=== PATIENT | male | born 1995 | race Caucasian/White ===

== ENCOUNTER 2018-06-11 15:08 | Emergency (ER) | payer MEDICAID, OTHER ==
[2018-06-11 15:14] VITALS: O2SAT 97
[2018-06-11 16:44] LABS: BASO % 0.2 % (0.0-2.0); EOS % 0.2 % (0.0-4.0); HEMOGLOBIN 13.9 g/dL (12.0-18.0); LYMPH # 1.6 K/uL (1.0-4.3); LYMPH % 15.2 % (20.0-40.0); MEAN CELL VOLUME 85.2 fL (80.0-94.0); MEAN PLATELET VOLUME 8.6 fL (7.2-11.7); MONO % 9.2 % (0.0-10.0); NEUT # 7.9 K/uL (1.8-7.0); NEUT % 75.2 % (50.0-75.0); NRBC % 0.1 % (0.0-2.0); RBC 4.81 Mil/uL (4.40-5.90); RED CELL DISTRIBUTION WIDTH 13.4 % (11.5-14.5); WHITE BLOOD COUNT 10.6 K/uL (4.8-10.8)
[2018-06-11 16:48] LABS: SQUAMOUS EPITHIAL < 1 /hpf (0-5); URINE BACTERIA RARE (<OCC); URINE BILIRUBIN NEGATIVE (NEGATIVE); URINE BLOOD NEGATIVE (NEGATIVE); URINE CLARITY Clear (Clear); URINE COLOR Yellow (YELLOW); URINE GLUCOSE (UA) NORMAL (Normal); URINE LEUKOCYTE ESTERASE NEG Leu/uL (Negative); URINE PROTEIN NEGATIVE (NEGATIVE); URINE UROBILINOGEN NORMAL mg/dL (0.2-1.0)
--- NOTE | 2018-06-11 16:56 | RAD ---
Date of service: 06/11/2018 HISTORY: cough COMPARISON: No prior. TECHNIQUE: Chest PA and lateral FINDINGS: LUNGS: No active pulmonary disease. PLEURA: No significant pleural effusion identified. No pneumothorax apparent. CARDIOVASCULAR: No aortic atherosclerotic calcification present. Normal cardiac size. No pulmonary vascular congestion. OSSEOUS STRUCTURES: No significant abnormalities. VISUALIZED UPPER ABDOMEN: Normal. OTHER FINDINGS: None. IMPRESSION: No active disease.
[2018-06-11 17:01] LABS: BARBITURATES, UR NEGATIVE (NEGATIVE); BENZODIAZEPINES, UR NEGATIVE (NEGATIVE); OPIATES, UR NEGATIVE (NEGATIVE); PHENCYCLIDINE, UR NEGATIVE (NEGATIVE)
[2018-06-11 17:02] LABS: ALB/GLOB RATIO 1.8 (1.0-2.1); ALBUMIN 5.1 g/dL (3.5-5.0); ALT/SGPT 7 U/L (21-72); AST/SGOT 26 U/L (17-59); BLOOD UREA NITROGEN 14 mg/dL (9-20); CALCIUM 9.7 mg/dl (8.6-10.4); GFR NON-AFRICAN AMERICAN > 60; LIPASE 96 U/L (23-300)
[2018-06-11 17:37] VITALS: BP 104/64; PULSE 82; RESP 18; TEMP 98.7
--- NOTE | 2018-06-11 18:10 | C.PDOC ---
History Of Present Illness 22 year old male presents to the ED for evaluation, stating he has been feeling anxious, uneasy and nauseous for around 1 month. Patient also reports vague abdominal discomfort. Patient also admits to marijuana use. He denies fever, chills, vomiting, diarrhea, hx of DVT/PE, or any other drug use. Time Seen by Provider: 06/11/18 15:49 Chief Complaint (Nursing): Abdominal Pain History Per: Patient History/Exam Limitations: no limitations Onset/Duration Of Symptoms: Other (one month ) Current Symptoms Are (Timing): Still Present Associated Symptoms: Nausea. denies: Fever, Chills, Vomiting, Diarrhea Additional History Per: Patient Past Medical History Reviewed: Historical Data, Nursing Documentation, Vital Signs Vital Signs: Last Vital Signs Temp 98.7 F 06/11/18 17:36 Pulse 82 06/11/18 17:36 Resp 18 06/11/18 17:36 BP 104/64 06/11/18 17:36 Pulse Ox 97 06/11/18 17:36 - Medical History PMH: No Chronic Diseases Surgical History: No Surg Hx Family History: States: Unknown Family Hx - Social History Hx Alcohol Use: No Hx Substance Use: Yes - Immunization History Hx Tetanus Toxoid Vaccination: No Hx Influenza Vaccination: No Hx Pneumococcal Vaccination: No Review Of Systems Constitutional: Negative for: Fever, Chills Gastrointestinal: Positive for: Nausea, Abdominal Pain. Negative for: Vomiting, Diarrhea Psych: Positive for: Anxiety Physical Exam - Physical Exam Appears: Non-toxic, No Acute Distress, Other (anxious-appearing male ) Skin: Normal Color, Warm, Dry Head: Atraumatic, Normacephalic Eye(s): bilateral: Normal Inspection Oral Mucosa: Moist Neck: Supple Chest: Symmetrical, No Deformity, No Tenderness, Other (tachycardic ) Cardiovascular: Rhythm Regular, No Murmur Respiratory: Normal Breath Sounds, No Rales, No Rhonchi, No Wheezing Gastrointestinal/Abdominal: Soft, Tenderness (epigastric ), No Guarding, No Rebound Extremity: Normal ROM, Capillary Refill (less than 2 seconds ) Neurological/Psych: Oriented x3, Normal Speech, Normal Cognition ED Course And Treatment - Laboratory Results Result Diagrams: 06/11/18 16:38 06/11/18 16:38 Lab Results: Troponin I 0.0130 ng/mL (0.00-0.120) 06/11/18 16:38 Total Bilirubin 0.3 mg/dL (0.2-1.3) 06/11/18 16:38 AST 26 U/L (17-59) 06/11/18 16:38 ALT 7 U/L (21-72) L 06/11/18 16:38 Alkaline Phosphatase 79 U/L (38-126) 06/11/18 16:38 Total Protein 7.9 g/dL (6.3-8.3) 06/11/18 16:38 Albumin 5.1 g/dL (3.5-5.0) H 06/11/18 16:38 Globulin 2.9 gm/dL (2.2-3.9) 06/11/18 16:38 Albumin/Globulin Ratio 1.8 (1.0-2.1) 06/11/18 16:38 Lipase 96 U/L (23-300) 06/11/18 16:38 Urine Color Yellow (YELLOW) 06/11/18 16:38 Urine Clarity Clear (Clear) 06/11/18 16:38 Urine pH 5.0 (5.0-8.0) 06/11/18 16:38 Ur Specific [place] 1.018 (1.003-1.030) 06/11/18 16:38 Urine Protein Negative mg/dL (NEGATIVE) 06/11/18 16:38 Urine Glucose (UA) Normal mg/dL (Normal) 06/11/18 16:38 Urine Ketones Negative mg/dL (NEGATIVE) 06/11/18 16:38 Urine Blood Negative (NEGATIVE) 06/11/18 16:38 Urine Nitrate Negative (NEGATIVE) 06/11/18 16:38 Urine Bilirubin Negative (NEGATIVE) 06/11/18 16:38 Urine Urobilinogen Normal mg/dL (0.2-1.0) 06/11/18 16:38 Ur Leukocyte Esterase Neg Joon/uL (Negative) 06/11/18 16:38 Urine WBC (Auto) 1 /hpf (0-5) 06/11/18 16:38 Urine RBC (Auto) 2 /hpf (0-3) 06/11/18 16:38 Ur Squamous Epith Cells < 1 /hpf (0-5) 06/11/18 16:38 Urine Bacteria Rare (<OCC) 03/15/19 16:38 ECG: Interpreted By Me, Viewed By Me ECG Rhythm: Sinus Rhythm Interpretation Of ECG: Normal Sinus rhythm at rate 78bpm. Normal intervals, normal axis. LVH. No ST/T wave abnormalities. Rate From EC O2 Sat by Pulse Oximetry: 97 (on RA ) Pulse Ox Interpretation: Normal Medical Decision Making Medical Decision Making: Assessment: anxiety Progress: Bloodwork, urinalysis, CXR, EKG ordered and reviewed. Xanax PO and Zofran IVP given. patient states improvement in symptoms, improved with xanax. Disposition - Disposition Referrals: Brenda Torres MD [Staff Provider] - Disposition: HOME/ ROUTINE Disposition Time: 18:08 Condition: IMPROVED Additional Instructions: follow up with your doctor within 2 days call to make an appointment take medication as prescribed return to ER if symptoms worsens or progress Prescriptions: ALPRAZolam [Xanax] 0.25 mg PO BID PRN #10 tab PRN Reason: Anxiety Famotidine [Pepcid] 20 mg PO BID #20 tab Instructions: Panic Disorder, Dyspepsia Forms: [facility] ([place]), General Discharge Instructions - Clinical Impression Clinical Impression: Panic disorder, Dyspepsia - Scribe Statement The provider has reviewed the documentation as recorded by the Scribe (Xochitl Hilliard) Provider Attestation: All medical record entries made by the Scribe were at my direction and personally dictated by me. I have reviewed the chart and agree that the record accurately reflects my personal performance of the history, physical exam, medical decision making, and the department course for this patient. I have also personally directed, reviewed, and agree with the discharge instructions and disposition.
== END 2018-06-11 19:03 | disposition home or self-care (01) ==
LOC: C.ER 15:08
DX: F41.0 Panic disorder [episodic paroxysmal anxiety] (principal); R10.13 Epigastric pain
CPT/HCPCS: 71046; 80053; 81001; 83690; 84484; 85025; 96374; 99284; G0480; J2405